=== PATIENT | female | born 1955 | race Caucasian/White ===

== ENCOUNTER 2019-09-15 14:58 | Outpatient (CLI) | payer BC, SELFPAY ==
--- NOTE | 2019-09-15 15:06 | XR_ITS ---
WS: [id number] SCREENING DEXA SCAN [employer] CLINICAL INFORMATION: POST MENOPAUSAL COMPARISON: None. FINDINGS: The L1-L4 bone mineral density measures 1.362 g/cm2. This corresponds to a T score score of 1.5 and Z score of 3.0. Left femoral neck bone mineral density measures 1.036 g/cm2. This corresponds to a T score of 0.2 and Z score of 1.3. Right femoral neck bone mineral density measures 1.052 g/cm2. This corresponds to a T score 0.4of and Z score of 1.4. Mean femoral neck bone mineral density measures 1.044 g/cm2. This corresponds to a T score of 0.3 and Z score of 1.4. XR/XR DEXA axial skeleton* [id number] IMPRESSION: Normal bone mineralization. Patient's FRAX calculated 10 year probability for major osteoporotic fracture i s 7.2 % and osteoporotic hip fracture is 0.3%.
== END 2019-09-15 14:59 | disposition home or self-care (01) ==
LOC: RADWPI 15:05
PROVIDERS: Family Provider Family Medicine; PCP Family Medicine; Visit Provider Family Medicine
DX: Z78.0 Asymptomatic menopausal state (principal)
CPT/HCPCS: 77080

== ENCOUNTER 2020-05-31 15:14 | Outpatient (CLI) | payer BC, SELFPAY ==
--- NOTE | 2020-05-31 15:18 | MM_ITS ---
WS: [id number] BILATERAL DIGITAL SCREENING MAMMOGRAPHY WITH CAD CLINICAL INFORMATION: SCREENING HISTORY: Screening mammogram. No current complaints. COMPARISON: TECHNIQUE: Bilateral CC and MLO views. FINDINGS: Scattered fibroglandular densities bilaterally. No suspicious focal mass, asymmetry, calcifications, or architectural distortion. No evidence of malignancy. MM/[id number] IMPRESSION: BI-RADS: 1-Negative FOLLOW UP: 1 Year Follow-up Recommend return to annual screening mammography.
== END 2020-05-31 15:15 | disposition home or self-care (01) ==
LOC: RADSHAW 15:17
PROVIDERS: PCP Family Medicine; Visit Provider Family Medicine
DX: Z12.31 Encounter for screening mammogram for malignant neoplasm of breast (principal)
CPT/HCPCS: 77067

== ENCOUNTER 2021-06-26 08:09 | Outpatient (CLI) | payer BC, SELFPAY ==
--- NOTE | 2021-06-26 08:16 | MM_ITS ---
WS: [id number] Screening TOMOSYNTHESIS DIGITAL MAMMOGRAM WITH CAD HISTORY: SCREENING COMPARISON: 05/31/2020 Bilateral CC and MLO views submitted. Computer aided detection analyzed. Breast composition: There are scattered areas of fibroglandular density. No suspicious masses, microc alcifications or architectural distortion. MM/[id number] IMPRESSION: BI-RADS: 1-Negative FOLLOW UP: 1 Year Follow-up
== END 2021-06-26 08:10 | disposition home or self-care (01) ==
LOC: RAD 08:12
PROVIDERS: PCP Family Medicine; Visit Provider Family Medicine
DX: Z12.31 Encounter for screening mammogram for malignant neoplasm of breast (principal)
CPT/HCPCS: 77063; 77067

== ENCOUNTER 2022-09-18 10:01 | Outpatient (CLI) | payer MEDICARE, SELFPAY ==
--- NOTE | 2022-09-18 10:06 | MM_ITS ---
WS: [id number] SCREENING DIGITAL TOMOSYNTHESIS MAMMOGRAM WITH CAD HISTORY: SCREENING COMPARISON: 06/27/2019 and 05/31/2020 Bilateral CC and MLO with tomosynthesis views submitted. Synthetic mammography reviewed. Computer aid ed detection analyzed. Breast composition: There are scattered areas of fibroglandular density. No suspicious masses, microc alcifications or architectural distortion. MM/[id number] IMPRESSION: BI-RADS: 1-Negative FOLLOW UP: 1 Year Follow-up
== END 2022-09-18 10:02 | disposition home or self-care (01) ==
LOC: RAD 10:04 → MOBLMAM 10:05
PROVIDERS: PCP Family Medicine; Visit Provider Family Medicine
DX: Z12.31 Encounter for screening mammogram for malignant neoplasm of breast (principal)
CPT/HCPCS: 77063; 77067

== ENCOUNTER 2023-02-12 20:00 | Outpatient (CLI) | payer MEDICARE, OTHER, SELFPAY | END 2023-02-12 20:01 | disposition home or self-care (01) | LOC: SLEEP 02-13 06:16 | PROVIDERS: PCP Family Medicine; Visit Provider Family Medicine | DX: G47.33 Obstructive sleep apnea (adult) (pediatric) (principal) | CPT/HCPCS: 95810 ==

== ENCOUNTER → 2023-05-30 09:54 | Outpatient (BNVA) | payer MEDICARE, OTHER, SELFPAY | PROVIDERS: PCP Family Medicine; Referring Provider Family Medicine; Visit Provider Internal Medicine Cardiovascular Disease | DX: I49.3 Ventricular premature depolarization (principal); R00.0 Tachycardia, unspecified; I49.1 Atrial premature depolarization | CPT/HCPCS: 93242 ==

== ENCOUNTER 2023-11-07 13:46 | Outpatient (CLI) | payer MEDICARE, OTHER, SELFPAY ==
--- NOTE | 2023-11-07 13:50 | MM_ITS ---
WS: [id number] BILATERAL SCREENING DIGITAL TOMOSYNTHESIS MAMMOGRAM WITH CAD HISTORY: SCREENING COMPARISON: 09/18/2022, 06/26/2021 Bilateral CC and MLO views with tomosynthesis and synthetic mammography submitted. Computer aided det ection analyzed. Breast composition: There are scattered areas of fibroglandular density. No suspicious masses, microc alcifications or architectural distortion. Benign calcifications in each breast. MM/[id number] IMPRESSION: BI-RADS: 2 - Benign. FOLLOW UP: 1 Year Follow-up
== END 2023-11-07 13:47 | disposition home or self-care (01) ==
PROVIDERS: PCP Family Medicine; Visit Provider Family Medicine
DX: Z12.31 Encounter for screening mammogram for malignant neoplasm of breast (principal); R92.323 Mammographic fibroglandular density, bilateral breasts; R92.1 Mammographic calcification found on diagnostic imaging of breast
CPT/HCPCS: 77063; 77067

== ENCOUNTER 2024-10-23 10:26 | Emergency (ER) | payer MEDICARE, OTHER, SELFPAY ==
[2024-10-23 10:30] VITALS: BP 146/76; PULSE 76; TEMP 36.6; O2SAT 100
--- OUTSIDE RECORDS SUMMARY | 2024-10-23 10:37 | XMS_ITS | Encounter Summary ---
Author Organization [facility] Address [address] [facility] Attn: Epic [place] [address] Care Team Providers Care Cupola Liner Name Role Phone Unavailable Primary Care Provider Unavailabl e Encounter Details Date Type Department Care Team (Late st Contact Info) Description 08/30/1999 Inpatient Historical Davin Ji MD [address] [phone] Social History Tobacco Use Types Packs/Day Years Used Date Smoking Tobacco: Never Assessed Comments Unknown Sex and Gender Information Value Date Recorded Sex Assigned at Not on file Legal 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
--- OUTSIDE RECORDS SUMMARY | 2024-10-23 10:37 | XMS_ITS | Encounter Summary ---
Author Organization [facility] Address [address] 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
--- OUTSIDE RECORDS SUMMARY | 2024-10-23 10:37 | XMS_ITS | Encounter Summary ---
Author Organization [facility] Address [address] [place] [address] Care Team Providers Care Facility Manager Histology Name Role Phone Unavailable Primary Care Provider Unavailabl e Encounter Details Date Type Department Care Team (Latest Contact Info) Description 11/08/2003 Outpatient Historical [facility] [place] [facility] [address] [address] Davin Ji MD [address] [address] Routine medical exam (Primary Dx); Gynecologic examination Social History Tobacco Use Types Packs/Day Years Used Date Smoking Tobacco: Never Assessed Comments Unknown Sex and Gender Information Value Date Recorded Sex Assigned at Not on file 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
--- OUTSIDE RECORDS SUMMARY | 2024-10-23 10:38 | XMS_ITS | Encounter Summary ---
Author Organization [facility] Address [address] [place] [address] Care Team Providers Care Laundry Operator Wash Room Name Role Phone Unavailable Primary Care Provider Unavailabl e Encounter Details Date Type Department Care Team (Latest Contact Info) Description 12/08/2004 Outpatient Historical [facility] [address] [address] Davin Ji MD [address] [address] Routine medical exam (Primary Dx); ROUTINE FOUNDER AND CEO EXAMINATION Social History Tobacco Use Types Packs/Day Years Used Date Smoking Tobacco: Never Assessed Comments Unknown Sex and Gender Information Value Date Recorded Sex Assigned at Not on file 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
--- OUTSIDE RECORDS SUMMARY | 2024-10-23 10:38 | XMS_ITS | Encounter Summary ---
Author Organization [facility] Address [address] [facility] [place] [address] Care Team Providers Care Labor Law Professor Name Role Phone Unavailable Primary Care Provider Unavailabl e Encounter Details Date Type Department Care Team (Late Contact Info) Description 12/08/2004 Outpatient Historical [facility] Davin Ji MD [address] [phone] Social History Tobacco Use Types Packs/Day Years Used Date Smoking Tobacco: Never Assessed Comments Unknown Sex and Gender Information Value Date Recorded Sex Assigned at Not on file 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
--- OUTSIDE RECORDS SUMMARY | 2024-10-23 10:38 | XMS_ITS | Clinical Summary ---
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
--- OUTSIDE RECORDS SUMMARY | 2024-10-23 10:38 | XMS_ITS | Patient Health Record ---
Author Organization [facility] Address [address] [facility] [place] [address] Care Team Providers Care Pelletizer Tender Name Role Phone Vaishali Howard Primary Care Provider VEGA Watts Unavailable [phone] TITUS SAL Unavailable [phone] Allergies No Known Allergies Results Component Value Reference Range Notes Urinalysis, Routine Reviewed date:01/13/2024 11:15:14 AM Interpretation: Performing Lab: Notes/Report: Urine-Color yellow Appearance clear Glucose - Bilirubin - Ketones - Specific Eek 1.010 Occult Blood - pH 7.0 Urine Protein - Urobilinogen,Semi-Qn - Nitrite, Urine - WBC Esterase - Reason For Referral No Information Medications Medication SIG (Take, Route, Frequency, Duration) Notes Start Date End Date Status Benazepril HCl 20 MG 1 tablet Orally Onc e a day Active Vitamin D3 Active Vitamin B Complex Ac tive Rosuvastatin Calcium 40 MG 1 tablet Oral ly Once a day Active Acidophilus Active [place] 3 Active Multi Vitamin Active Magnesium Active Calcium Citrate + D3 315-5 MG-MCG 1 tablet Orally Once a day Active Janumet 50-1000 MG 1 tablet with meals Orally Twice a day Active Glucosamine 500 MG 1 capsule with a yuki l Orally Three times a day Active glipiZIDE ER 5 MG 1 tablet with food Orally Once a day for 15 mg total per day Active Vitamin C 500 MG as directed Orally Active glipiZIDE 10 MG 1 tablet 30 minutes before breakfast Orally Once a day Active Multi For Her - as directed Orally Active Cetirizine HCl 10 MG 1 tablet as needed Orally Once a day Active Omeprazole 20 MG 1 capsule 30 minutes before morning meal Orally Once a day Active Biotin Active Cetirizine HCl 10 MG 1 tablet Orally Onc e a day Active Social History Tobacco Use: Social History Observation Description Date Details (start date - stop date) Never Smoker NA - NA Tobacco Use/Smoking Question Answer Notes Tobacco use: nonsmoker Problems Problem Type SNOMED Code ICD Code Onset Dates Problem Status W/U Status Risk Notes Problem Urethral caruncle (1290796) 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) Active confirmed Problem Atrophic vaginitis (N95.2) Active confirmed Problem Microscopic hematuria (160196000) Microscopic hematuria (R31.29) Active confirmed Vital Signs Heart Rate 76 /min 01/13/2024 Height-cm 160.02 cm 01/13/2024 Blood pressure diastolic 63 mm Hg 01/13/2024 Weight-kg 66.68 kg 01/13/2024 Height 63 in 01/13/2024 Blood pressure systolic 113 mm Hg 01/13/2024 Weight 147 lbs 01/13/2024 BMI 26.04 kg/m2 01/13/2024 Procedures Procedure Date Ordered Date Performed Result Body Sit e Bladder Scan 01/13/2024 01/13/2024 N/A Encounters Encounter Location Date Provider Diagnosis [facility] [address] [place] [address] 01/13/2024 TITUS SAL Urethral caruncle N3 6.2 ; Atrophic vaginitis N95.2 ; Vaginal dryness N89.8 ; History of hormone replacement therapy Z79.890 and Chronic constipation K59.09 Assessments Encounter Date Diagnosis (ICD Code) Assessment Notes Treatment Notes Treatment Clinical Notes Section Notes 01/13/2024 Urethral caruncle (ICD-10 - N36.2) 01/13/2024 Atrophic vaginitis (ICD-10 - N95.2) 01/13/2024 Vaginal dryness (ICD-10 - N89.8) 01/13/2024 History of hormone replacement therapy (ICD-10 - Z79.890) 01/13/2024 Chronic constipation (ICD-10 - K59.09) 01/13/2024 Other UA clear, PVR 37ml. Patient doing well with no urological complaints. Continue with good hydration and constipation control, use Replens for dryness. RTC as needed. Plan Of Treatment No Information Insurance Providers Payer Name Payer Address Payer Phone Subscriber Number Group Number Insured Name Patient Relationship to Insured Coverage Start Date Coverage End Date [place] [address] [place] [id number] iMrna Britt Self - patient is the insured [employer] [address] [address] [place], [place] [id number] [phone] [id number] Mirna Britt Self - patient is the insured Medical (General) History Medical History History ICD Code urethral caruncle diabetes Roberto Carlos type 11a hyperlipoproteinemi a hypercholesterolemia hypertension Surgical History Surgery Date(Month/Year) tonsilectomy hysterectomy
[2024-10-23 11:31] VITALS: BP 120/50; O2SAT 99
--- NOTE | 2024-10-23 11:33 | ED_ITS ---
HPI - Extremity Problem 2 General: Chief complaint: Extremity Problem,Nontraumatic Stated complaint: RT leg numbn Time Seen by Provider: 10/23/24 11:21 History of Present Illness: 69-year-old female presents emergency ro om with complaint of right leg pain and some decreased sensation she still has full function strength is normal. She has been seeing a chiropractor for what they described as a displaced talus in her foot. Most of her discomfort of the dorsum of the foot while the sole of the foot is normal sensation of the right compared to the left. She has decreased sensation on the dorsum of the foot and across on the lateral and anterior portions of her lower leg and thigh. No trauma. No previous advanced imaging. No saddle paresthesias no fecal incontinence or urinary retention Associated symptoms: Deny chest pain, fever(s) or rash Related Data Home Medications ?Medication ?Instructions ?Recorded ?Confirmed atorvastatin 10 mg tablet 10 mg PO QPM 10/22/24 benazepril 20 mg tablet 20 mg PO DAILY 10/22/2409/26 glipizide 10 mg tablet, extended 10 mg PO DAILY 10/23/24 release 24 hr glipizide 5 mg tablet, extended 5 mg PO DAILY 10/22/24 10/23/24 release 24 hr metformin 750 mg tablet,extended 750 mg PO DAILY 10/2210/23/24 release 24 hr sitagliptin phosphate 100 mg 100 mg PO DAILY 10/22/24 10/23/24 tablet (Januvia) cetirizine 10 mg tablet (Zyrtec) 10 mg PO DAILY PRN al lergies 10/23/24 10/23/24 docusate sodium 100 mg capsule 100 mg PO BID 10/23/24 10/23/24 (Colace) fexofenadine 180 mg tablet 180 mg PO DAILY PRN allergi es 10/23/24 10/23/24 lactobacillus combination no.4 3 3,000 mmu cells PO BE DTIME 10/23/24 10/23/24 billion cell capsule (Probiotic) loteprednol etabonate 0.5 % eye 1 applic ophthalmic (e ye) PRN 10/23/24 10/23/24 ointment (Lotemax) melatonin 3 mg tablet 3 mg PO BEDTIME PRN sleepl 0 10/23/24 10/23/24 omeprazole 20 mg tablet,delayed 20 mg PO BID 10/23/24 10/23/24 release Previous Rx's ?Medication ?Instructions ?Recorded methylprednisolone 4 mg tablets in See Rx Instructions PO .COMPLEX 10/23/24 a dose pack (Medrol (Chas)) #21 ea pregabalin 75 mg capsule (Lyrica) 75 mg PO BID #30 cap s 10/23/24 Allergies Allergy/AdvReac Type Severity Reaction Status Date / Time No Known Allergies Allergy Verified 10/23/24 10:35 Review of Systems 2 Const: Denies: fever(s) or chills Card: Denies: chest pain Resp: Denies: dyspnea GI: Denies: abdominal pain : Denies: dysuria, urinary frequency or urinary urgency Musc: Denies: neck pain or back pain Skin/Breast: Denies: rash PFSH ED 2 PFSH: Social History Smoking and tobacco/nicotine status: never used tobacco/nicotine Physical Exam 2 Const: COMMON NORMALS: no acute distress GENERAL APPEARANCE: cooperative and comfortable ORIENTATION/CONSCIOUSNESS: Yes awake, Yes oriented to person, Yes oriented to place and Yes oriented to time HENMT: COMMON NORMALS: normocephalic, atraumatic and hearing grossly normal bilaterally HEAD & SCALP: normocephalic and atraumatic Resp: COMMON NORMALS: normal respiratory effort, No retractions, No use of accessory muscles and clear to auscultation bilaterally AUSCULTATION: clear to auscultation bilaterally Cardio: COMMON NORMALS: regular rate, regular rhythm and No murmurs present (Cardio) RATE: regular rate RHYTHM: regular rhythm GI: COMMON NORMALS: Soft to palpation and No hepatosplenomegaly present A USCULTATION: Yes normoactive bowel sounds PALPATION: Yes Soft to palpation, No Tenderness to palpation present (GI), No Guarding due to palpation present (GI) and Yes No hepatosplenomegaly present Extremity: COMMON NORMALS: normal to inspection, capillary refill normal, no clubbing, cyanosis or edema, no calf tenderness and no pedal edema Neuro: SENSORIUM/ORIENTATION: Yes oriented to person, Yes oriented to place and Yes oriented to time OTHER: Strength lower extremities 5/5 bilaterally dorsal and plantar strength 5 is 5 strength at the hip flexors is also 5/5 slightly decreased sensation in the right leg compared to the left although the sole of the foot sensation is preserved. Deep tendon reflexes +2/4 patellar tendon bilaterally Skin: COMMON NORMALS: no rashes or lesions noted GENERAL SKIN EXAM: no rashes or lesions noted Course 2 Vital Signs: Vital signs: Vital Signs Temperature 97.8 F 10/23/24 10:30 Pulse Rate 74 10/23/24 14:05 Blood Pressure 139/60 10/23/24 14:05 Pulse Oximetry 99 10/23/24 14:05 Oxygen Delivery Me thod Room Air 10/23/24 11:31 MDM - Extremity (Nontraumatic) Medical Decision Making Strength in lower extremities normal sensation somewhat diminished but no preserved on the sole of the foot. Suspect she may have a lumbar nerve impingement. She states she has decreased sensation even above the knee so do not think it is a peripheral peroneal nerve entrapment. Her function is still intact she is not having from the gait will discharge home on steroid taper and have her follow-up with her primary care doctor Medical Records I reviewed the patient's medical records. Lab Data I reviewed the patient's lab results. 10/23/24 11:29 10/23/24 11:29 Laboratory Results WBC 5.83 10^3/uL (3.29-11.43) 10/23/24 11: RBC 4.66 10^6/uL (3.85-5.65) 10/23/24 11:29 Hgb 13.30 g/dL (11.27-16.99) 10/23/24 11: Hct 41.2 % (36-47) 10/23/24 11: MCV 88.4 fl (85-98) 10/23/24 11:29 MCH 28.5 pg (27-33) 10/23/24 11:29 MCHC 32.3 g/dL (30-55) 10/23/24 11: RDW 13.3 % (12.1-15.1) 10/23/24 11:29 Plt Count 196 10^3/cmm (157-399) 10/23/24 11:29 MPV 11.0 fL (7.4-10.4) H 10/23/24 11: Neut % (Auto) 65.0 % 10/23/24 11: Lymph % (Auto) 25.4 % 10/23/24 11: Tillman % (Auto) 7.0 % 10/23/24 11: Eos % (Auto) 1.9 % 10/23/24 11: Baso % (Auto) 0.5 % 10/23/24 11: Neut # (Auto) 3.79 10^3/uL (1.8-7.7) 10/23/24 11: Lymph # (Auto) 1.5 10^3/uL (0.8-4.8) 10/23/24 11: Tillman # (Auto) 0.4 10^3/uL (0.2-0.9) 10/23/24 11: Eos # (Auto) 0.1 10^3/uL (0.0-0.8) 10/23/24 11: Baso # (Auto) 0.0 10^3/uL (0.0-0.1) 10/23/24 11: Nucleated RBC % (auto) 0 % 10/23/24 11: Nucleated RBCs # 0.0 /100WBC 10/23/24 11: Sodium 141 mmol/L (136-145) 10/23/24 11:29 Potassium 4.5 mmol/L (3.5-5.1) 10/23/24 11: Chloride 108 mmol/L (98-107) H 10/23/24 11: Carbon Dioxide 23 mmol/L (22-29) 10/23/24 11:29 Anion Gap 14.5 (5-19) 10/23/24 11: BUN 21 mg/dL (8-23) 10/23/24 11: Creatinine 0.8 mg/dL (0.5-0.9) 10/23/24 11:29 GFR Calculation 71.1 mL/min (90-130) L 10/23/24 11: Glucose 209 mg/dL (65-115) H 10/23/24 11: Calculated Osmolality 301 mOsm/kg (285-295) H 10/23/24 11:29 Calcium 10.1 mg/dL (8.5-10.5) 10/23/24 11: Total Bilirubin 0.2 mg/dL (0.15-1.2) 10/23/24 11: AST 15 U/L (0-32) 10/23/24 11:29 ALT 24 U/L (0-33) 10/23/24 11:29 Alkaline Phosphatase 85 U/L (35-105) 10/23/24 11:29 C-Reactive Protein 3.0 mg/L (0.0-4.9) 10/23/24 11:29 Total Protein 6.6 g/dL (6.6-8.7) 10/23/24 11:29 Albumin 4.2 g/dL (3.5-5.2) 10/23/24 11:29 Globulin 2.4 g/dL (1.3-4.6) 10/23/24 11:29 No radiology studies performed this visit Discharge Plan Discharge Patient Disposition: Home Clinical Impression: Peripheral neuropathy Condition: Stable Prescriptions: New methylprednisolone [Medrol (Chas)] 4 mg tablets,dose pack See Rx Instructions .ROUTE .COMPLEX Qty: 21 0RF Rx Instructions: orally per package directions pregabalin [Lyrica] 75 mg capsule 75 mg PO BID Qty: 30 0RF No Action Januvia 100 mg tablet 100 mg PO DAILY atorvastatin 10 mg tablet 10 mg PO QPM glipizide 10 mg tablet extended release 24hr 10 mg PO DAILY Rx Instructions: along with 5mg to= 15mg total glipizide 5 mg tablet extended release 24hr 5 mg PO DAILY Rx Instructions: along with 10mg to= 15mg total benazepril 20 mg tablet 20 mg PO DAILY metformin 750 mg tablet extended release 24 hr 750 mg PO DAILY cetirizine [Zyrtec] 10 mg Tablet 10 mg PO DAILY PRN (Reason: allergies) melatonin 3 mg Tablet 3 mg PO BEDTIME PRN (Reason: sleepl) fexofenadine 180 mg Tablet 180 mg PO DAILY PRN (Reason: allergies) docusate sodium [Colace] 100 mg Capsule 100 mg PO BID omeprazole 20 mg Tablet,Delayed Release (Dr/Ec) 20 mg PO BID Lotemax 0.5 % Ointment 1 applic ophthalmic (eye) PRN Probiotic 3 billion cell Capsule 3,000 mmu cells PO BEDTIME Rx Instructions: administer with a meal Discharge Orders: Discharge ED (Routine); Ordered 10/23/24 Ordered By: Fabian Muir Referrals: Vaishali Howard MD [Primary Care Provider, Family Practice] Discharge Diet: Usual diet Discharge Activity: Increase activity as tolerated Patient Instructions: Opioid Safety, Pain Management, Patient Portal & Tyrese Instructions Activity Restrictions/Additional Instructions: Thank you for choosing [facility] for your healthcare needs today. It is very important that you follow up as instructed or that you return to the Emergency Department should you have concerns or if your condition changes or worsens in any way. Emergency department visits are focused on emergent conditions, in some cases you may require further evaluation on an outpatient basis. You were seen in the emergency room with leg numbness. Functionally your leg on exam was still normal. Will start you on a steroid taper recommend you follow- up with your primary care physician you may need neurologic testing such as a nerve conduction or possibly advanced imaging such as an MRI of your lower back. Return if you have loss of function of the leg. (Please note that included in your discharge packet is information concerning opioid safety and pain management. This information is given to all patients were discharged from the ER regardless of their discharge diagnosis or the medicines they usually take or are prescribed.) Print Language: Belarusian Coding Level of Care Code ED Shell Sieve Operator for Irineo Anthony
[2024-10-23 11:35] LABS: Hematocrit 41.2 % (36-47); Hemoglobin 13.30 g/dL (11.27-16.99); Mean Corpuscular HGB Conc 32.3 g/dL (30-55); Mean Corpuscular Hemoglobin 28.5 pg (27-33); Mean Corpuscular Volume 88.4 fl (85-98); Nucleated Red Blood Cells % 0 %; Platelet Count 196 10^3/cmm (157-399); Red Blood Count 4.66 10^6/uL (3.85-5.65); White Blood Count 5.83 10^3/uL (3.29-11.43)
[2024-10-23 11:53] LABS: Alanine Aminotransferase 24 U/L (0-33); Albumin Level 4.2 g/dL (3.5-5.2); Alkaline Phosphatase 85 U/L (35-105); Anion Gap 14.5 (5-19); Aspartate Amino Transferase 15 U/L (0-32); Blood Urea Nitrogen 21 mg/dL (8-23); Calcium 10.1 mg/dL (8.5-10.5); Carbon Dioxide 23 mmol/L (22-29); Chloride 108 mmol/L (98-107); Creatinine Clr Calc Pharmacy 61.2657; Globulin 2.4 g/dL (1.3-4.6); Glucose 209 mg/dL (65-115); Osmolality Calculated 301 mOsm/kg (285-295); Potassium 4.5 mmol/L (3.5-5.1); Sodium 141 mmol/L (136-145); Total Protein 6.6 g/dL (6.6-8.7)
[2024-10-23 13:19] VITALS: BP 123/72
--- NOTE | 2024-10-23 13:19 | PC.PHAR ---
Pt has extensive list of otc vitamins and supplements not added to pts med list: Chromium picolinate 1000mcg, Completer Multivitamin 50+, Vitaminc 1000mg , Glucosamine Sulfate 1000mg, Feliberto-mag capsule, Digest prime, Milk Thistle 175mg Chelated magnesium 100mg, Biotin 5000, Zinc 50mg, Vitamin A 24mcg, [place] 3-1600mg, Vitamin B stress complex, Hormone Prime tablets, L-lysine 1000mg, Vitamin d3 1000mg , [place] 500mcg, Vitamin K-2 2.5mcg, Milk Thistle 300mg, [place] Root 100mg, Phosphorus 115mg, Vitamin E d-alpha tocopherol 13.4mg, [place] Fish Oil 2.5g, Total [place] 3 1600mg, EPA 800mg, DHA 600mg.
[2024-10-23 14:05] VITALS: BP 139/60; PULSE 74; O2SAT 99
== END 2024-10-23 14:06 | disposition home or self-care (01) ==
LOC: ER 10:50 → ER IP 11:21
PROVIDERS: Emergency Provider Family Medicine; PCP Family Medicine
DX: G62.9 Polyneuropathy, unspecified (principal); Z79.84 Long term (current) use of oral hypoglycemic drugs
CPT/HCPCS: 36415; 80053; 85025; 86140; 96372; 96374; 99284; J1100; J1885

== ENCOUNTER 2024-11-12 10:42 | Outpatient (CLI) | payer MEDICARE, OTHER, SELFPAY ==
--- NOTE | 2024-11-12 10:46 | MM_ITS ---
WS: [id number] BILATERAL SCREENING DIGITAL TOMOSYNTHESIS MAMMOGRAM WITH CAD HISTORY: SCREENING COMPARISON: 11/07/2023, 09/18/2022 Bilateral CC and MLO views with tomosynthesis and synthetic mammography submitted. Computer aided detection analyzed. Breast composition: There are scattered areas of fibroglandular density. No suspicious masses, microcalcifications or architectural distortion. Benign calcifications in each breast. MM/MM scr BI tomosynthesis [id number] IMPRESSION: BI-RADS: 2 - Benign. FOLLOW UP: 1 Year Follow-up
== END 2024-11-12 10:43 | disposition home or self-care (01) ==
LOC: RAD 10:43
PROVIDERS: PCP Family Medicine; Visit Provider Family Medicine
DX: Z12.31 Encounter for screening mammogram for malignant neoplasm of breast (principal); R92.323 Mammographic fibroglandular density, bilateral breasts
CPT/HCPCS: 77063; 77067

== ENCOUNTER → 2024-12-22 13:31 | Outpatient (BNVA) | payer MEDICARE, OTHER, SELFPAY | PROVIDERS: PCP Family Medicine; Referring Provider Family Medicine; Visit Provider Specialist | DX: G62.9 Polyneuropathy, unspecified (principal); G62.89 Other specified polyneuropathies | CPT/HCPCS: 95909 ==